=== PATIENT | female | born 1990 | race American Indian/Alaskan Native ===

== ENCOUNTER 2017-11-05 07:49 | Emergency (ER) | payer OTHER ==
[2017-11-05 08:56] LABS: Bacteria,Urine 1+ /HPF (Negative); Bilirubin,Urine NEG (Negative); Blood,Urine NEG (Negative); Color,Urine Yellow (Yellow); Mucus,Urine 1+ /HPF; Nitrite,Urine NEG (Negative); Urobilinogen,Urine < 2.0 mg/dL (<2.0)
[2017-11-05 09:10] LABS: Basophils % (Auto) 0.7 % (0.0-1.8); Hematocrit 48.6 % (30.3-42.9); Hemoglobin 16.1 gm/dl (10.1-14.3); Lymphocytes # (Auto) 1.8 K/mm3 (1.2-5.4); Lymphocytes % (Auto) 26.3 % (13.4-35.0); Mean Corpuscular HGB Conc 33 % (30-34); Mean Corpuscular Hemoglobin 26 pg (28-32); Mean Corpuscular Volume 79 fl (79-97); Monocytes # (Auto) 0.8 K/mm3 (0.0-0.8); Monocytes % (Auto) 11.8 % (0.0-7.3); Platelet Count 333 K/mm3 (140-440); Red Blood Count 6.15 M/mm3 (3.65-5.03); Red Cell Distribution Width 16.8 % (13.2-15.2)
[2017-11-05 09:48] LABS: Alanine Aminotransferase 9 units/L (7-56); Albumin 4.4 g/dL (3.9-5); BUN/Creatinine Ratio 17; Blood Urea Nitrogen 12 mg/dL (7-17); Calcium 9.3 mg/dL (8.4-10.2); Hemolysis Index 8
--- NOTE | 2017-11-05 12:37 | Emergency Department Report ---
Chief Complaint: Abdominal Pain Stated Complaint: FLU LIKE SYMPTOMS - HPI History of Present Illness: 27 yo female presents with fever, sore throat, sharp lower abdominal pain for several days. will need home oral hydration and likely discharge. - Exam Vital Signs: Vital Signs 11/05/17 08:12 Temperature 98.2 F Pulse Rate 59 L Respiratory 16 Rate Blood Pressure 170/100 O2 Sat by Pulse 99 Oximetry MSE screening note: Focused history and physical exam performed. Due to findings the following was ordered: ED Medical Decision Making - Lab Data Result diagrams: 11/05/17 08:57 11/05/17 08:57 ED Disposition for MSE Condition: Stable Instructions: Abdominal Pain (ED) Referrals: PRIMARY CARE, [Primary Care Provider] - 3-5 Days
[2017-11-05] MEDS ORDERED: ZOFRAN ODT PO ONE (12:52)
--- NOTE | 2017-11-05 13:01 | Emergency Department Report ---
ED General Adult HPI - General Chief complaint: Abdominal Pain Stated complaint: FLU LIKE SYMPTOMS Time Seen by Provider: 11/05/17 12:44 Source: patient Mode of arrival: Ambulatory Limitations: No Limitations - History of Present Illness Initial comments: 27 yo female who presents with fever, sore throat, sharp lower abdominal pain for several days. pt continues to tolerate po intake , fever responsive to otc tylenol and ibuprofen Onset/Timin -: days(s) Location: abdomen Radiation: non-radiation Severity scale (0 -10): 3 Quality: aching Consistency: intermittent Improves with: none Worsens with: none Associated Symptoms: fever/chills, loss of appetite, nausea/vomiting. denies: cough, malaise, rash, seizure, syncope, weakness Treatments Prior to Arrival: NSAID - Related Data Previous Rx's Medication Instructions Recorded Last Taken Type Potassium Chloride [K-Dur] 20 meq PO BID #6 tab 05/08/16 Unknown Rx Promethazine [Phenergan TAB] 25 mg PO Q6HR PRN #20 tab 05/08/16 Unknown Rx amLODIPine [Norvasc] 5 mg PO DAILY #30 tab 05/08/16 Unknown Rx traMADol [Ultram 50 MG tab] 50 mg PO Q6HR PRN #20 tablet 05/08/16 Unknown Rx Cephalexin [Keflex] 500 mg PO BID #14 capsule 11/05/17 Unknown Rx Ibuprofen 800 mg PO TID PRN #30 tablet 11/05/17 Unknown Rx Ondansetron [Zofran Odt] 4 mg PO TID PRN #12 tab.rapdis 11/05/17 Unknown Rx Allergies Allergy/AdvReac Type Severity Reaction Status Date / Time No Known Allergies Allergy Unverified 05/08/16 13:25 ED Review of Systems ROS: Stated complaint: FLU LIKE SYMPTOMS Other details as noted in HPI Constitutional: fever Eyes: denies: eye pain, eye discharge, vision change ENT: throat pain, congestion Respiratory: cough. denies: shortness of breath, SOB with exertion, wheezing Cardiovascular: denies: chest pain, palpitations, paroxysmal nocturnal dyspnea Endocrine: no symptoms reported Gastrointestinal: nausea. denies: abdominal pain, diarrhea, constipation, hematemesis, melena, hematochezia Genitourinary: frequency. denies: urgency, dysuria, hematuria, discharge, abnormal menses, dyspareunia Musculoskeletal: denies: back pain, joint swelling, arthralgia Skin: denies: rash, lesions Neurological: denies: headache, weakness, paresthesias Psychiatric: denies: anxiety, depression Hematological/Lymphatic: denies: easy bleeding, easy bruising ED Past Medical Hx - Past Medical History Previous Medical History?: No - Surgical History Past Surgical History?: No - Social History Smoking Status: Never Smoker Substance Use Type: Alcohol - Medications Home Medications: Home Medications Medication Instructions Recorded Confirmed Last Taken Type Potassium Chloride [K-Dur] 20 meq PO BID #6 tab 05/08/16 Unknown Rx Promethazine [Phenergan TAB] 25 mg PO Q6HR PRN #20 tab 05/08/16 Unknown Rx amLODIPine [Norvasc] 5 mg PO DAILY #30 tab 05/08/16 Unknown Rx traMADol [Ultram 50 MG tab] 50 mg PO Q6HR PRN #20 tablet 05/08/16 Unknown Rx Cephalexin [Keflex] 500 mg PO BID #14 capsule 11/05/17 Unknown Rx Ibuprofen 800 mg PO TID PRN #30 tablet 11/05/17 Unknown Rx Ondansetron [Zofran Odt] 4 mg PO TID PRN #12 tab.rapdis 11/05/17 Unknown Rx ED Physical Exam - General Limitations: No Limitations General appearance: alert, in no apparent distress - Head Head exam: Present: atraumatic, normocephalic - Eye Eye exam: Present: normal appearance, PERRL, EOMI Pupils: Present: normal accommodation - ENT ENT exam: Present: normal orophraynx, mucous membranes moist, TM's normal bilaterally, normal external ear exam - Neck Neck exam: Present: normal inspection, full ROM. Absent: lymphadenopathy, thyromegaly - Respiratory Respiratory exam: Present: normal lung sounds bilaterally. Absent: respiratory distress, wheezes, stridor, chest wall tenderness - Cardiovascular Cardiovascular Exam: Present: regular rate, normal rhythm, normal heart sounds. Absent: systolic murmur, diastolic murmur, rubs, gallop - GI/Abdominal GI/Abdominal exam: Present: soft, normal bowel sounds. Absent: distended, tenderness, guarding, rebound, rigid, organomegaly, mass, bruit, pulsatile mass , hernia - Rectal Rectal exam: Present: deferred - Extremities Exam Extremities exam: Present: normal inspection, full ROM. Absent: tenderness - Back Exam Back exam: Present: normal inspection, full ROM, CVA tenderness (R). Absent: muscle spasm, paraspinal tenderness, vertebral tenderness, rash noted - Neurological Exam Neurological exam: Present: alert, oriented X3, CN II-XII intact, normal gait, reflexes normal - Psychiatric Psychiatric exam: Present: normal affect, normal mood - Skin Skin exam: Present: warm, dry, intact, normal color. Absent: rash ED Course Vital Signs 11/05/17 08:12 Temperature 98.2 F Pulse Rate 59 L Respiratory 16 Rate Blood Pressure 170/100 O2 Sat by Pulse 99 Oximetry ED Medical Decision Making - Lab Data Result diagrams: 11/05/17 08:57 11/05/17 08:57 Laboratory Tests 11/05/17 11/05/17 11/05/17 08:40 08:57 08:57 WBC 6.9 RBC 6.15 H Hgb 16.1 H Hct 48.6 H MCV 79 MCH 26 L MCHC 33 RDW 16.8 H Plt Count 333 Lymph % (Auto) 26.3 [place] % (Auto) 11.8 H Eos % (Auto) 0.0 Baso % (Auto) 0.7 Lymph # 1.8 [place] # 0.8 Eos # 0.0 Baso # 0.0 Seg Neutrophils % 61.2 Seg Neutrophils # 4.2 Sodium 138 Potassium 3.2 L Chloride 92.9 L Carbon Dioxide 28 Anion Gap 20 BUN 12 Creatinine 0.7 Estimated GFR > 60 BUN/Creatinine Ratio 17 Glucose 87 Calcium 9.3 Total Bilirubin 0.70 AST 14 ALT 9 Alkaline Phosphatase 66 Total Protein 8.2 Albumin 4.4 Albumin/Globulin Ratio 1.2 HCG, Qual Urine Color Yellow Urine Turbidity Clear Urine pH 5.0 Ur Specific [place] 1.021 Urine Protein 100 mg/dl Urine Glucose (UA) 50 Urine Ketones 20 Urine Blood Neg Urine Nitrite Neg Urine Bilirubin Neg Urine Urobilinogen < 2.0 Ur Leukocyte Esterase Mod Urine WBC (Auto) 16.0 H Urine RBC (Auto) 6.0 U Epithel Cells (Auto) 8.0 Urine Bacteria (Auto) 1+ Urine Mucus 1+ Urine Yeast (Budding) Few 11/05/17 08:57 WBC RBC Hgb Hct MCV MCH MCHC RDW Plt Count Lymph % (Auto) [place] % (Auto) Eos % (Auto) Baso % (Auto) Lymph # [place] # Eos # Baso # Seg Neutrophils % Seg Neutrophils # Sodium Potassium Chloride Carbon Dioxide Anion Gap BUN Creatinine Estimated GFR BUN/Creatinine Ratio Glucose Calcium Total Bilirubin AST ALT Alkaline Phosphatase Total Protein Albumin Albumin/Globulin Ratio HCG, Qual Negative Urine Color Urine Turbidity Urine pH Ur Specific [place] Urine Protein Urine Glucose (UA) Urine Ketones Urine Blood Urine Nitrite Urine Bilirubin Urine Urobilinogen Ur Leukocyte Esterase Urine WBC (Auto) Urine RBC (Auto) U Epithel Cells (Auto) Urine Bacteria (Auto) Urine Mucus Urine Yeast (Budding) - Medical Decision Making 27 yo female who presents with fever, sore throat, sharp lower abdominal pain for several days. pt continues to tolerate po intake , fever responsive to otc tylenol and ibuprofen patient does appear well-hydrated well-nourished nontoxic currently tolerating by mouth intake without nausea vomiting UA noted Luke's bacteria moderate yeast patient states urinary frequency denies dysuria no vaginal discharge no bleeding no hematuria no urinary hesitancy , pt wtih mild htn at this time states hx of htn however not taken bp meds today pt directed to take same upon arrival to home, pt verbalized agreement and understanding of same. plan complete hydration DC with Keflex by mouth for UTI ibuprofen when necessary fever pain hydrate as directed follow up PCP in 2-3 days turn ED his symptoms worsen patient verbalizes understanding and agreement with discharge plan patient DC to home in stable condition at this time Critical care attestation.: If time is entered above; I have spent that time in minutes in the direct care of this critically ill patient, excluding procedure time. ED Disposition Clinical Impression: URI (upper respiratory infection) Qualifiers: URI type: unspecified viral URI Qualified Code(s): J06.9 - Acute upper respiratory infection, unspecified UTI (urinary tract infection) Qualifiers: Urinary tract infection type: acute cystitis Hematuria presence: without hematuria Qualified Code(s): N30.00 - Acute cystitis without hematuria Disposition: DC-01 TO HOME OR SELFCARE Is pt being admited?: No Does the pt Need Aspirin: No Condition: Good Instructions: Abdominal Pain (ED) Prescriptions: Cephalexin [Keflex] 500 mg PO BID #14 capsule Ibuprofen 800 mg PO TID PRN #30 tablet PRN Reason: pain and fever Ondansetron [Zofran Odt] 4 mg PO TID PRN #12 tab.rapdis PRN Reason: Nausea And Vomiting Referrals: PRIMARY CARE,MD [Primary Care Provider] - 3-5 Days Forms: Work/School Release Form(ED) Time of Disposition: 13:07
[2017-11-05 13:17] VITALS: BP 179/125
[2017-11-05] MEDS ORDERED: NORVASC PO ONE (13:21)
[2017-11-05] MEDS ORDERED: TENORMIN ONE (13:24)
== END 2017-11-05 13:35 | disposition home or self-care (01) ==
LOC: ED 07:49
DX: N30.00 Acute cystitis without hematuria (principal); J06.9 Acute upper respiratory infection, unspecified
CPT/HCPCS: 36415; 80053; 81001; 84703; 85025; 99283; Q0162